=== PATIENT | female | born 1955 | race Caucasian/White ===

== ENCOUNTER → 2020-08-09 | Outpatient (CLI) | payer OTHER, MEDICARE | LOC: SJCVC 13:32 | PROVIDERS: ATTEND Internal Medicine | DX: I50.32 Chronic diastolic (congestive) heart failure (principal); I87.2 Venous insufficiency (chronic) (peripheral); E78.5 Hyperlipidemia, unspecified; G47.30 Sleep apnea, unspecified; R06.02 Shortness of breath; M10.9 Gout, unspecified; E78.00 Pure hypercholesterolemia, unspecified; G47.00 Insomnia, unspecified; F41.9 Anxiety disorder, unspecified; Z79.899 Other long term (current) drug therapy; Z87.891 Personal history of nicotine dependence ==

== ENCOUNTER → 2020-12-05 | Outpatient (CLI) | payer OTHER, MEDICARE | LOC: SJCVC 11:45 | PROVIDERS: ATTEND Internal Medicine | DX: R00.1 Bradycardia, unspecified (principal); I50.32 Chronic diastolic (congestive) heart failure; K31.819 Angiodysplasia of stomach and duodenum without bleeding; E78.5 Hyperlipidemia, unspecified; D50.0 Iron deficiency anemia secondary to blood loss (chronic); G47.30 Sleep apnea, unspecified; M10.9 Gout, unspecified; E78.00 Pure hypercholesterolemia, unspecified; E55.9 Vitamin D deficiency, unspecified; F41.9 Anxiety disorder, unspecified; Z87.891 Personal history of nicotine dependence; Z79.899 Other long term (current) drug therapy ==

== ENCOUNTER 2020-12-21 15:16 | Inpatient (IN) | payer OTHER, MEDICARE ==
--- NOTE | ~2020-12-21 | P ---
[facility] [place] [address] PROCEDURE REPORT Name: MARÍA ELENA LUNA Room #: 436-P ADM IN M.R.#: [id number] Admission: 12/21/20 Attend Phys: Phill March MD Discharge: Date of : 53 Report #: [id number] THIS REPORT FOR: cc: Jerald Avila James R. DO McElhinney, Christian C. MD ~ cc: Jerald Malloy DO, Andrew K. Karu, MD DATE OF SERVICE: 12/22/2020 PROCEDURE PERFORMED: Upper endoscopy with APC cautery. HISTORY OF PRESENT ILLNESS: The patient is a 65-year-old female with a history of recurrent anemia. She has a previous history of melanotic stools. 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 Multiple colon polyps were removed as well as moderate diverticulosis was seen. On admission to [facility], hemoglobin was 7.8 and stool was Hemoccult positive. She dropped to 6.7. She underwent a transfusion of 2 units of packed cells. Her hemoglobin here is 8.9. She denies any abdominal pain. She has been on PPI therapy since August of this year. Denies any nausea or vomiting. Plan is for upper endoscopy for further evaluation. DESCRIPTION OF PROCEDURE: The risks and benefits of the procedure were explained to the patient, those risks including but not limited to bleeding, perforation and the risk of sedation. She understood these risks and gave informed consent. Sedation was given using propofol per anesthesia. Next, using a standard Olympus upper endoscope, the scope was placed in the patient's mouth and advanced under direct vision through the esophagus, stomach and into the second portion of the duodenum. The esophagus was normal throughout. The GE junction was normal. The gastric mucosa was normal in the fundus and body; however, in the antrum, there was a moderate to severe gastritis, likely consistent with GAVE. Several biopsies were obtained. There was no active bleeding. The pylorus was normal and patent. The duodenal bulb, first and second portion were all normal. The scope was then brought back up into the patient's stomach and I proceeded to treat the antral gastritis with APC cautery. Multiple treatments were performed. There was no evidence of bleeding after APC cauterization. At this point, the scope was then withdrawn and the procedure terminated. The patient tolerated the procedure well. IMPRESSION: 1. 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 No active bleeding at this time, but could cause melena and anemia, status post APC cautery today as described above. 2. Otherwise, normal upper endoscopy. RECOMMENDATIONS: 1. Continue PPI therapy. [address] [address] PROCEDURE REPORT Name: MARÍA ELENA LUNA Room #: 436-P [facility] IN ..#: [id number] Admission: 12/21/20 Attend Phys: Phill March MD Discharge: Date of : 53 Report #: [id number] 2. Continue to monitor hemoglobin. 3. We will add Carafate b.i.d. at this time. 4. Would repeat upper endoscopy with likely repeat APC cauterization in the next 1-2 months. Thank you for allowing me to participate in her care. By: 1421 0335 Boubacar Martin MD /nt
[2020-12-21 18:30] VITALS: BP 119/68
--- NOTE | 2020-12-21 19:10 | NUR ---
Pt transferred to unit from [facility]. Hospital provider visited wit patient. Report given to andrew CABRALLO.
[2020-12-21 19:53] VITALS: BP 112/63
--- NOTE | 2020-12-22 01:01 | NUR ---
ADMISSION HX,EDUCATION AND ASSESSMENTS COMPLETED.PT UP ADLIB WITH A STEADY GAIT.PT HAD LOOSE BROWN STOOL IMMEDIATELY AFTER SHIFT CHANGE.CLEAR LIQUIDS AT START OF SHIFT,NPO NOW FOR EGD LATER TODAY.BLE EDEMA NOTED ,PT EDUCATED TO ELEVATE LEGS WHILE IN BED.PT ON TELE SR-SB.PT RESTING ON HER BED AT THIS TIME.CALL LIGHT WITHIN REACH.
[2020-12-22 05:22] LABS: HEMATOCRIT 27.9 % (37.0-47.0); HEMOGLOBIN 8.9 gm/dL (12.0-15.0); MCH 30.7 pg (26.0-34.0); MCV 95.8 fL (80.0-100.0); PLATELET COUNT 247 thou/uL (150-400); RBC 2.91 mil/uL (4.20-5.00); RDW 26.1 % (10.5-14.5); WBC 7.4 thou/uL (4.0-11.0)
[2020-12-22 05:32] LABS: CALCIUM 8.6 mg/dL (8.5-10.1); MAGNESIUM 2.2 mg/dL (1.8-2.4); POTASSIUM 4.3 mmol/L (3.5-5.1)
[2020-12-22 06:54] VITALS: BP 102/56
[2020-12-22 07:00] LABS: ABSOLUTE NEUTROPHILS 5.7 thou/uL (1.4-8.2); ANISOCYTOSIS 3+; LARGE PLATELETS FEW; PLATELET ESTIMATE NORMAL; POIKILOCYTOSIS 2+; POLYCHROMASIA 1+
--- NOTE | 2020-12-22 13:05 | NUR ---
INITIAL ASSESSMENT: SW reviewed chart and spoke with nursing and attending physician. Pt was transferred to [facility] from [facility] for GI services. Pt with GI bleed and will have an EGD today. Pt will discharge home over the weekend. Pt is alert/orientated x 4 and lives at home with her in [place], [place]. No discharge needs anticipated. SW is available to assist should needs arise.
--- NOTE | 2020-12-22 13:19 | EKG ---
[address] [employer] [place] [address] ELECTROCARDIOGRAM REPORT Name: KEYONMARKMARÍA ELENA Room #: 436-P ADM IN M.R.#: [id number] Admission: 12/21/20 Attend Phys: Phill March MD Discharge: Date of : 53 Report #: [id number] [facility] Test Date: 2020-12-22 Test Time: 08:43:23 Pat Name: MARÍA ELENA LUNA Department: Room: 436 P Gender: F Structural Engineer: FLORENCIO : 1955 Requested By: Erich Velazquez Order Number: [id number] : Bashir Buchanan Measurements Intervals [place] Rate: 52 P: -26 SC: 163 QRS: -22 QRSD: 89 T: 16 QT: 475 QTc: 442 Interpretive Statements Sinus rhythm Borderline left axis deviation No previous ECG available for comparison Electronically Signed On 12-22-2020 13:19:33 CDT by Bashir Buchanan [email or web address] <ELECTRONICALLY SIGNED> By: Bashir Buchanan MD, [facility] 12/22/20 1319 0843 0843 Bashir Buchanan MD, FACC /EPI
--- NOTE | 2020-12-22 17:54 | NUR ---
ASSUMED PT CARE AROUND 0715. PT A X O X 4. ON RA. UP AD SUYAPA.IV RT AC/ NS/75MLS/HR. PT WENT FOR EGD AROUND 1300 AND CAME BACK AROUND 1600. EXERTIONAL DYSPNEA. PLAN TO OBSERVE TO NIGHT AND DC ONCE H&H STABLE.ON REGULAR DIET NOW. TOLERATING FLUIDS AND FOOD. HEART RATE RUNNING ON 40S AND 50S, CARDIOLOGY SAID, IT IS OKAT. ON TELE MONITOR. FALL PRECT IN PLACE. CALL LIGHT IN REACH. HOURLY ROUNDS DONE. WILL CONT TO MONITOR.
[2020-12-22 19:37] VITALS: BP 110/63
--- NOTE | 2020-12-23 04:43 | NUR ---
UPON SHIFT REPORT, PT IV NOTED TO HAVE REDNESS AND EDEMA ALONG WITH PAIN WITH TOUCH. PT RELUCTANT TO HAVE IV REMOVED DUE TO REPORTS OF NEEDLE ANXIETY AND POOR PREVIOUS EXPERIENCES. PT RECEPTIVE TO EMOTIONAL SUPPORT AND REASSURANCE. NEW IV SITE OBTAINED ON LEFT FOREARM. UPON SHIFT ASSESSMENT, PT AOX4. PT DENIES PAIN. PT REPORTS SOB WITH EXERTION, REMAINS ON ROOM AIR, NO DESATURATIONS NOTED. PT TOLERATING PO INTAKE OF FLUIDS AND REGULAR DIET WITHOUT ISSUE. PT WITHOUT NAUSEA OR EMESIS. PT AMBULATING INDEPENDENTLY IN ROOM AND TO BATHROOM, RESTING IN BED OTHERWISE. FREQUENT REPOSITIONING ENCOURAGED WHILE IN BED, PT SHIFTING INDEPENDENTLY. +4 FIRM, PITTING EDEMA NOTED TO BLE. SENSATION INTACT, CAPILLARY REFILL LESS THAN 3SEC, PERIPHERAL PULSES PALPABLE IN ALL EXTREMITIES. PT ENCOURAGED TO NOTIFY STAFF FOR ALL NEEDS, CALL LIGHT WITHIN REACH, BED ALARM LOCKED IN LOWEST POSITION, ROOM REMAINS NEAR NURSES STATION, FREQUENT MONITORING WILL CONTINUE.
[2020-12-23 08:11] VITALS: BP 105/63
[2020-12-23] MEDS ORDERED: DEMADEX20 MG PO (12:52)
[2020-12-23] MEDS ORDERED: CARAFATE 1 GM TA1 G1 PO (12:52)
[2020-12-23] MEDS ORDERED: PROTONIX40 M2 PO (12:52)
[2020-12-23 12:58] VITALS: BP 105/63
--- NOTE | 2020-12-23 14:35 | NUR ---
PT PROGRESSING WELL TOWARD GOALS. HAVING DARK BROWN STOOL NOW. HGB INCREASING. EATING AND DRINKING WELL. DR. GONZALEZ HAVING PT RETURN IN 2 WEEKS FOR FURTHER WORKUP. DC'D AT THIS TIME W/ ALL BELONGINGS.
--- NOTE | 2020-12-26 11:07 | PATH ---
[facility] [place] [address] PATHOLOGY RPT PROCEDURE Name: SHERIE ARIZMENDI Room #: 436-P DIS IN M.R.#: [id number] Admission: 12/21/20 Date of : 53 Discharge: 12/23/20 Report #: [id number] Path Case #: [id number] [facility] Accession Number: [id number] . 01 Material submitted: . gastrointestinal site - GASTRITIS BIOPSY R/O GAVE . 01 Clinical history: . ESOPHAGOGASTRODUODENOSCOPY GI BLEED, HX OF AVM GASTRITIS, GAVE ANEMIA . 02 Diagnosis: Gastric mucosa, gastritis, rule out GAVE, endoscopic biopsy: - Moderate reactive gastropathy. - Mild congestion of blood vessels, superficially within lamina propria. - Negative for intestinal metaplasia or atrophy. - Negative for features of gastric antral vascular ectasia. - Negative for Helicobacter pylori (properly controlled immunohistochemical stain performed). ([facility]aco; 12/25/2020) [facility] 12/25/2020 1212 Local . 02 Electronically signed: . Sheron Webster MD, Pathologist NPI- [id number] . 01 Gross description: . Received in formalin labeled "Sherie Arizmendi, gastritis BX r/o GAVE" are multiple spivey-brown soft tissue fragments measuring in aggregate 0.6 x 0.5 x 0.2 cm. The specimen is submitted entirely in A1. ([facility]; 12/23/2020) [facility] 12/23/2020 1202 Local . 02 Pathologist provided ICD-10: K31.9 . 02 CPT . 528696, M88948 Specimen Comment: A courtesy copy of this report has been sent to [phone], [phone] Specimen Comment: [phone], , Specimen Comment: Report sent to DR. GONZALEZ, DR LUND, DR INGRAM Specimen Comment: / DR MOE Specimen Comment: Report sent to Specimen Comment: A duplicate report has been generated due to demographic updates. Performed at: [address] [place] [address] PATHOLOGY RPT PROCEDURE Name: SHERIE ARIZMENDI S Room #: 436-P DIS IN M.R.#: [id number] Admission: 12/21/20 Date of : 53 Discharge: 12/23/20 Report #: [id number] Path Case #: [id number] [facility] [place], [place], [place] [id number] MD Francesco Renae MD Phone: [phone] Performed at: [address] [id number] MD Sheron Webster MD Phone: [phone]
== END 2020-12-23 14:43 | disposition home or self-care (01) | DRG 378 ==
LOC: 4S 15:16
PROVIDERS: Nurse Practitioner; ADMIT Hospitalist; ATTEND Hospitalist
PROC: 0DB78ZX Excision of Stomach, Pylorus, Via Natural or Artificial Opening Endoscopic, Diagnostic (ICD-10-PCS; principal; 2020-12-22)
PROC: 0W3P8ZZ Control Bleeding in Gastrointestinal Tract, Via Natural or Artificial Opening Endoscopic (ICD-10-PCS; 2020-12-22)
DX: K31.811 Angiodysplasia of stomach and duodenum with bleeding (principal); N17.9 Acute kidney failure, unspecified; I50.32 Chronic diastolic (congestive) heart failure; D50.9 Iron deficiency anemia, unspecified; R00.1 Bradycardia, unspecified; G62.9 Polyneuropathy, unspecified; E78.5 Hyperlipidemia, unspecified; M10.9 Gout, unspecified; G89.29 Other chronic pain; M54.50 Low back pain, unspecified; N18.9 Chronic kidney disease, unspecified; F41.9 Anxiety disorder, unspecified; E66.9 Obesity, unspecified; G47.33 Obstructive sleep apnea (adult) (pediatric); Z20.822 Contact with and (suspected) exposure to COVID-19; Z90.49 Acquired absence of other specified parts of digestive tract; Z79.899 Other long term (current) drug therapy; Z86.010 Personal history of colon polyps
CPT/HCPCS: 10100; 62110; 62900; 70005

== ENCOUNTER → 2021-01-24 | Outpatient (CLI) | payer OTHER, MEDICARE ==
[~2021-01-24] VITALS: Ht 170.2 cm; Wt 105.2 kg
[~2021-01-24] MED LIST: ALLOPURINOL 30300 M1 PO; ALPRAZOLAM1 MG PO; CARAFATE 1 GM TA1 G1 PO; DEMADEX20 MG PO; FLONASE 0.05%50 MCG NARES; LIVALO2 MG PO; NEURONTIN 300M300 M2 PO; POTASSIUM CHLO10 ME1 PO; PROTONIX40 M2 PO
--- NOTE | 2021-01-26 10:40 | P ---
[facility] [place] [address] PROCEDURE REPORT Name: MARÍA ELENA LUNA [id number] Admission: 01/24/21 Attend Phys: Boubacar Rand Discharge: Date of : 53 Report #: [id number] THIS REPORT FOR: cc: Faizan Arnold MD, Neal A. MD McElhinney, Christian C. MD ~ cc: Jerald Malloy DO DATE OF SERVICE: 01/24/2021 PROCEDURE PERFORMED: Upper endoscopy with APC bleeding control. HISTORY OF PRESENT ILLNESS: The patient is a 65-year-old female with a history of anemia and melanotic stools at one point. 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 She was admitted at her local hospital with a hemoglobin in the 7 range, dropped to 6.7. I performed an upper endoscopy on her on 12/22/2020, which showed likely a GAVE in her gastric antrum, no active bleeding, I proceeded with treatment with APC cautery, otherwise normal. The patient has been on PPI therapy and Carafate. She continues to be anemic. She is undergoing IV iron transfusions. She has not required another blood transfusion reportedly. She denies any obvious melena at this time. Plan is for upper endoscopy. DESCRIPTION OF PROCEDURE: The risks and benefits of the procedure were explained to the patient, those risks including but not limited to bleeding, perforation and the risk of sedation. She understood these risks and gave informed consent. Sedation was given using propofol per anesthesia. Next, using a standard Olympus upper endoscope, the scope was placed in the patient's mouth and advanced under direct vision through the esophagus, stomach and into the second portion of the duodenum. The larynx was normal in appearance. The esophagus was normal throughout. The GE junction was normal. Overall, the gastric mucosa was normal in the fundus as well as the upper body. In the distal body and antrum, again gastritis was noted consistent with GAVE-type changes. No active bleeding. The pylorus was normal and patent. The duodenal bulb, first and second portion were all normal. The scope was then brought back up into the patient's stomach and I proceeded to treat all areas with APC cautery. There was no evidence of bleeding after cauterization. There was improvement in comparison to her previous upper endoscopy prior to her previous treatment. At this point, the scope was then withdrawn and the procedure terminated. The patient tolerated the procedure well. IMPRESSION: 1. Antral gastritis, no active bleeding, but likely source of anemia, status post APC cautery as described above. 2. Otherwise, normal upper endoscopy. [facility] [address] [place] [address] PROCEDURE REPORT Name: KEYONMARKMARÍA ELENA Carl Room #: REG [facility] Jess#: [id number] Admission: 01/24/21 Attend Phys: Boubacar Rand Discharge: Date of : 53 Report #: [id number] RECOMMENDATIONS: 1. Observe the patient post-procedure. 2. Continue PPI therapy and Carafate and monitoring hemoglobin. We would likely recommend repeat upper endoscopy with repeat treatment in 2 months' time. Thank you for allowing me to participate in her care. <ELECTRONICALLY SIGNED> By: Boubacar Martin MD 01/26/21 1040 1227 1243 Boubacar Martin MD /nt
== END | disposition home or self-care (01) ==
LOC: GI 10:09
PROVIDERS: ATTEND Specialist
DX: K31.819 Angiodysplasia of stomach and duodenum without bleeding (principal); K29.70 Gastritis, unspecified, without bleeding; D64.9 Anemia, unspecified; I11.0 Hypertensive heart disease with heart failure; I50.9 Heart failure, unspecified; E78.5 Hyperlipidemia, unspecified; K21.9 Gastro-esophageal reflux disease without esophagitis; F41.9 Anxiety disorder, unspecified; M10.9 Gout, unspecified; Z98.890 Other specified postprocedural states; Z20.822 Contact with and (suspected) exposure to COVID-19; Z79.899 Other long term (current) drug therapy; Z90.710 Acquired absence of both cervix and uterus; Z98.51 Tubal ligation status; Z90.49 Acquired absence of other specified parts of digestive tract
CPT/HCPCS: 62110; 62900